=== PATIENT | male | born 1955 | race Caucasian/White ===

== ENCOUNTER 2016-09-13 16:16 | Inpatient (IN) | payer MEDICAID ==
[~2016-09-13] VITALS: Ht 152.4 cm; Wt 85.0 kg
[2016-09-13 16:21] VITALS: Ht 152.4 cm; Wt 85.0 kg
[2016-09-13] MEDS ORDERED: SOD CHLORIDE 0.9% 1,000 ML IV STA (16:32)
[2016-09-13] MEDS ORDERED: AMLO5TAB4 PO (16:47)
[2016-09-13] MEDS ORDERED: TAMS0.4C2 PO (16:48)
[2016-09-13] MEDS ORDERED: ASPI-664 PO (16:48)
[2016-09-13] MEDS ORDERED: NITR-58 PO (16:48)
[2016-09-13] MEDS ORDERED: LISI40TA9 PO (16:49)
[2016-09-13 16:50] LABS: ADD SCAN DIFF NO
[2016-09-13 16:55] LABS: BASOPHILS % 0.4 % (0.0-2.0); EOSINOPHILS # 0.2 10^3/ul (0.0-0.5); EOSINOPHILS % 2.1 % (0.0-7.0); HEMATOCRIT 45.5 % (42.0-52.0); LYMPHOCYTES # 2.4 10^3/ul (0.8-2.9); LYMPHOCYTES % 29.7 % (15.0-51.0); MEAN CORPUSCULAR HEMOGLOBIN 31.6 pg (29.0-33.0); MEAN CORPUSCULAR HGB CONC 35.2 g/dl (32.0-37.0); MEAN CORPUSCULAR VOLUME 89.7 fl (82.0-101.0); MEAN PLATELET VOLUME 9.5 fl (7.4-10.4); MONOCYTE # 0.6 10^3/ul (0.3-0.9); MONOCYTES % 8.1 % (0.0-11.0); NEUTROPHIL # 4.7 10^3/ul (1.6-7.5); NEUTROPHILS % 59.2 % (39.0-77.0); PLATELET COUNT 250 10^3/UL (140-415); RED BLOOD COUNT 5.07 10^6/ul (4.70-6.10); RED CELL DISTRIBUTION WIDTH 12.6 % (11.5-14.5); WHITE BLOOD COUNT 7.9 10^3/ul (4.8-10.8)
[2016-09-13 17:05] LABS: CHLORIDE 101 mmol/L (97-110); POTASSIUM 3.4 mmol/L (3.5-5.1); SODIUM 136 mmol/L (135-144)
[2016-09-13 17:08] LABS: ANION GAP 18 (8-16); BLOOD UREA NITROGEN 19 mg/dl (7-20); CALCIUM 9.5 mg/dl (8.4-10.2); CARBON DIOXIDE 20 mmol/L (21-31); CREATININE 0.75 mg/dl (0.61-1.24); GLUCOSE 130 mg/dl (70-220)
[2016-09-13 17:13] LABS: INR 0.95; PROTIME 12.7 Sec (12.2-14.2)
[2016-09-13 17:14] LABS: PARTIAL THROMBOPLASTIN TIME 31.3 Sec (25.0-35.0)
--- NOTE | 2016-09-13 17:23 | RADRPT ---
PROCEDURE: Chest x-ray CLINICAL INDICATION: Possible stroke TECHNIQUE: Chest single view COMPARISON: None FINDINGS: The heart is normal in size. The pulmonary vessels are normal in caliber. The lungs are clear. Th e costophrenic angles are sharp. The visualized bony thorax is unremarkable. IMPRESSION: No acute cardiopulmonary disease. RPTAT: HH .Cristino Robert MD, Date Time Electronically viewed and signed by .Cristino Robert MD, MD on 09/13/2016 17:22 .W/
[2016-09-13 17:30] LABS: ADD UMIC NO; URINE BILIRUBIN (Dip) NEGATIVE (NEGATIVE); URINE BLOOD (Dip) NEGATIVE (NEGATIVE); URINE COLOR LT. YELLOW (YELLOW); URINE GLUCOSE (Dip) NEGATIVE (NEGATIVE); URINE KETONES (Dip) NEGATIVE (NEGATIVE); URINE LEUKOCYTE ESTERASE (Dip) NEGATIVE (NEGATIVE); URINE NITRITE (Dip) NEGATIVE (NEGATIVE); URINE TOTAL PROTEIN (Dip) NEGATIVE (NEGATIVE); URINE UROBILINOGEN (Dip) 0.2 E.U./dL (0.1-1.0)
[2016-09-13 17:44] LABS: TROPONIN-I < 0.012 ng/ml (0.00-0.12)
[2016-09-13] MEDS ORDERED: POTASSIUM CHLORIDE (SR) 20 MEQ TAB PO STA (17:49)
[2016-09-13 18:29] LABS: BARBITURATES NEGATIVE (NEGATIVE)
[2016-09-13 18:30] LABS: BENZODIAZEPINES NEGATIVE (NEGATIVE); CANNABINOIDS NEGATIVE (NEGATIVE); COCAINE NEGATIVE (NEGATIVE); OPIATES NEGATIVE (NEGATIVE)
[2016-09-13] MEDS ORDERED: IOHEXOL 100 ML ONE (19:13)
[2016-09-13] MEDS ORDERED: IOHEXOL 350MG/ML 50 ML BTL ONE (19:13)
[2016-09-13] MEDS ORDERED: SOD CHLORIDE 0.9% 100 ML ONE (19:13)
[2016-09-13] MEDS ORDERED: LABETALOL HCL 20MG INJ IV ONE (19:30)
--- NOTE | 2016-09-13 19:44 | RADRPT ---
PROCEDURE: CT Head without contrast. CLINICAL INDICATION: Neurologic deficit TECHNIQUE: The study was performed utilizing a GE 64-slice multidetector CT scanner. Direct spiral axial CT images of the brain were obtained from the vertex to the skull base without contrast. Cor onal and sagittal reformat images are provided. The CTDI vol is 43.68 mGy and the DLP is 720.23 mGy -cm. The images were reviewed on a PACS workstation. COMPARISON: No prior studies are available for comparison. FINDINGS: The ventricles and cortical sulci are within normal limits. The ibrahim-white matter differentiation i s maintained. No intra or extra-axial fluid collection or mass effect or shift in the midline struc tures is seen. The visualized paranasal sinuses, mastoid air cells, orbits, and calvarium are unrem arkable. IMPRESSION: No acute intracranial pathology. RPTAT: HPNM Physician Tello Date Time Electronically viewed and signed by Physician Tello on 09/13/2016 19:44 /
--- NOTE | 2016-09-13 19:51 | RADRPT ---
PROCEDURE: CTA Chest. CLINICAL INDICATION: Chest pain and shortness of breath TECHNIQUE: The study was performed utilizing a GE 64-slice multidetector CT scanner. Multiple axia l sections were obtained from the thoracic inlet to the upper abdomen with the use of 125 cc of Omni paque 350 nonionic intravenous contrast material. Coronal and sagittal reformations were obtained. 3 -D reformatted images were performed. The images were reviewed on a PACS workstation. The CTDI vol is 45.34 mGy and the DLP is 741.92 mGy-cm. COMPARISON: No prior studies are available for comparison. FINDINGS: No filling defect in the pulmonary arterial system is seen. The main and central pulmonary arteries are normal in course and caliber. The aorta is without aneurysmal dilatation or dissection.The shola gs and pleural spaces are clear. The heart is mildly enlarged. No pericardial effusion is seen. No abnormally enlarged lymph nodes in the mediastinum, hilum, or axilla are seen. No suspicious osteob lastic for osteolytic lesions are seen. A duodenal diverticulum is seen. The visualized portions of the upper abdomen is grossly unremarkable. IMPRESSION: 1. No CT evidence for pulmonary embolus. 2. No CT evidence of an aortic dissection. 3. No acute pathology in the chest. RPTAT: HPNM Physician Tello Date Time Electronically viewed and signed by Physician Tello on 09/13/2016 19:51 /
[2016-09-13] MEDS ORDERED: ACETAMINOPHEN 325 MG TAB PO PRN ×2 (20:00→23:30)
[2016-09-13] MEDS ORDERED: ONDANSETRON 4 MG INJ IV PRN (20:00)
--- NOTE | 2016-09-13 20:16 | ERA ---
ER Documentation Chief Complaint Date/Time DATE: 09/13/16 TIME: 20:14 Chief Complaint left side numbness, after taking norvasc 5 mg HPI Patient is a 60-year-old male with hypertension who presents with numbness. He said that this morning he did not feel well. He had bilateral leg numbness. He went to his clinic today but did not tell the doctor what symptoms he was having. On the way home he said that he started to feel even worse and now is having chest pain and bilateral arm numbness. His right hand was shaking. He felt short of breath. He had difficulty with speaking. Upon review of old medical records this the patient's first visit to the emergency department. He says that his primary doctor is Dr. Ford. ROS All systems reviewed and are negative except as per history of present illness. Medications Home Meds Reported Medications Lisinopril* (Lisinopril*) 40 Mg Tablet, 40 MG PO DAILY, #30 TAB 09/13/16 Aspirin* (Aspirin* EC) 81 Mg Tablet.dr, 81 MG PO DAILY, TAB 09/13/16 Tamsulosin Hcl* (Tamsulosin Hcl*) 0.4 Mg Cap.er.24h, 0.4 MG PO TID, CAP 09/13/16 Nitrofurantoin Monohyd Macrocr* (Macrobid*) 100 Mg Capsr, 100 MG PO Q12H, CAP 09/13/16 Amlodipine Besylate* (Norvasc*) 5 Mg Tablet, 5 MG PO DAILY, TAB 09/13/16 Allergies Allergies: Coded Allergies: No Known Allergy (Unverified , 09/13/16) PMhx/Soc History of Surgery: No Anesthesia Reaction: No Hx Neurological Disorder: No Hx Respiratory Disorders: No Hx Cardiac Disorders: Yes (htn) Hx Psychiatric Problems: No Hx Miscellaneous Medical Probl: No Hx Alcohol Use: No Hx Substance Use: No Hx Tobacco Use: No Smoking Status: Never smoker FmHx Family History: No coronary disease Physical Exam Vitals Vital Signs Date Time Temp Pulse Resp B/P Pulse Ox O2 Delivery O2 Flow Rate FiO2 09/13/16 18:18 73 16 178/102 98 Room Air 09/13/16 16:55 Nasal Cannula 2 09/13/16 16:21 97.5 101 24 210/100 99 Physical Exam Const: Moderate distress Head: Atraumatic Eyes: Normal Conjunctiva ENT: Normal External Ears, Nose and Mouth. Neck: Full range of motion..~ No meningismus. Resp: Clear to auscultation bilaterally Cardio: Regular rate and rhythm, no murmurs Abd: Soft, non tender, non distended. Normal bowel sounds Skin: No petechiae or rashes Back: No midline or flank tenderness Ext: No cyanosis, or edema Neur: Awake and alert, cranial nerves II through XII are intact, no slurred speech, strength is 5 out of 5 in all 4 extremities Psych: Normal Mood and Affect Result Diagram: 09/13/16 1640 09/13/16 1640 Results 24 hrs Laboratory Tests Test 09/13/16 16:40 09/13/16 16:52 09/13/16 17:02 White Blood Count 7.910^3/ul Red Blood Count 5.0710^6/ul Hemoglobin 16.0g/dl Hematocrit 45.5% Mean Corpuscular Volume 89.7fl Mean Corpuscular Hemoglobin 31.6pg Mean Corpuscular Hemoglobin Concent 35.2g/dl Red Cell Distribution Width 12.6% Platelet Count 79436^3/UL Mean Platelet Volume 9.5fl Neutrophils % 59.2% Lymphocytes % 29.7% Monocytes % 8.1% Eosinophils % 2.1% Basophils % 0.4% Nucleated Red Blood Cells % 0.0/100WBC Neutrophils # 4.710^3/ul Lymphocytes # 2.410^3/ul Monocytes # 0.610^3/ul Eosinophils # 0.210^3/ul Basophils # 0.010^3/ul Nucleated Red Blood Cells # 0.010^3/ul Prothrombin Time 12.7Sec Prothrombin Time Ratio 1.0 INR International Normalized Ratio 0.95 Activated Partial Thromboplast Time 31.3Sec Sodium Level 136mmol/L Potassium Level 3.4mmol/L Chloride Level 101mmol/L Carbon Dioxide Level 20mmol/L Anion Gap 18 Blood Urea Nitrogen 19mg/dl Creatinine 0.75mg/dl Glucose Level 130mg/dl Hemoglobin A1c 5.6% Calcium Level 9.5mg/dl Troponin I < 0.012ng/ml Urine Color LT. YELLOW Urine Clarity CLEAR Urine pH 6.0 Urine Specific [place] <=1.005 Urine Ketones NEGATIVE Urine Nitrite NEGATIVE Urine Bilirubin NEGATIVE Urine Urobilinogen 0.2 E.U./dL Urine Leukocyte Esterase NEGATIVE Urine Hemoglobin NEGATIVE Urine Glucose NEGATIVE% Urine Total Protein NEGATIVE Urine Opiates Screen NEGATIVE Urine Barbiturates NEGATIVE Urine Amphetamines Screen NEGATIVE Urine Benzodiazepines Screen NEGATIVE Urine Cocaine Screen NEGATIVE Urine Cannabinoids NEGATIVE Bedside Glucose 143mg/dL Current Medications Medications (Trade) Dose Ordered Sig/Jesusita Route PRN Reason Start Time Stop Time Status Last Admin Dose Admin Sodium Chloride (NS) 1,000 ml @ 1,000 mls/hr Q1H STAT IV 09/13/16 16:32 09/13/16 17:31 DC 09/13/16 16:53 Potassium Chloride (Klor-Con 20) 40 meq ONCE STAT PO 09/13/16 17:49 09/13/16 17:51 DC 09/13/16 18:22 IV Flush 10 ml 10 ml STK-MED ONCE .ROUTE 09/13/16 19:13 09/13/16 19:14 DC 09/13/16 19:37 Sodium Chloride 100 ml @ ud STK-MED ONCE .ROUTE 09/13/16 19:13 09/13/16 19:14 DC 09/13/16 19:37 Iohexol (Omnipaque) 100 ml @ ud STK-MED ONCE .ROUTE 09/13/16 19:13 09/13/16 19:14 DC 09/13/16 19:37 Iohexol (Omnipaque 350mg/ ml) 50 ml STK-MED ONCE .ROUTE 09/13/16 19:13 09/13/16 19:14 DC 09/13/16 19:37 Labetalol HCl (Labetalol) 20 mg ONCE ONCE IV 09/13/16 19:30 09/13/16 19:31 DC 09/13/16 19:58 Ondansetron HCl (Zofran Inj) 4 mg ER BRIDGE PRN IV NAUSEA AND/OR VOMITING 09/13/16 20:00 09/14/16 19:59 Acetaminophen (Tylenol Tab) 650 mg ER BRIDGE PRN PO MILD PAIN/FEVER 09/13/16 20:00 09/14/16 19:59 Procedures/MDM EKG read by me: Rate/Rhythm: Sinus arrhythmia at a rate of 84 Intervals: Normal Impression: Sinus arrhythmia with PVCs CT brain normal per radiology. CT of the chest is negative per radiology without PE or aortic dissection. Chest x-ray shows no pneumonia or pneumothorax per radiology. Patient is a 60-year-old male who presents with numbness and chest pain. I was concerned about possible stroke as well as aortic dissection. I am also concerned about possible acute coronary syndrome. The patient had a full workup including laboratory studies, EKG, CT scan of the brain, and CT scan of the chest. The patient was given aspirin. The patient will be admitted to the care of Dr. Arceo from the panel team for a telemetry bed. He also has significantly elevated blood pressure and was given labetalol IV to bring in the blood pressure for hypertensive emergency. The patient also has hypokalemia with a potassium of 3.4 and was given potassium by mouth. The patient is not a TPA candidate as his symptoms started earlier this morning and he is outside the window for IV TPA or mechanical retrieval. He had a bedside swallow evaluation and NIH stroke scale performed. Critical Care: Time: 35 minutes excluding all billable procedures. Treatments/Evaluations: Close monitoring and treatment of unstable vital signs, cardiorespiratory, and neurologic status, while maintaining tight balance of fluid, respiratory, and cardiac interventions. Departure Diagnosis: Primary Impression: Hypertensive emergency Additional Impressions: Numbness Chest pain Qualified Code: R07.9 - Chest pain, unspecified type Stroke Qualified Code: I63.9 - Cerebrovascular accident (CVA), unspecified mechanism Hypokalemia Condition: SOHAIL Ramirez MD Sep 13, 2016 20:16
[2016-09-13 22:40] VITALS: PULSE 61
[2016-09-13] MEDS ORDERED: morphine 2 MG INJ IV PRN (23:30)
[2016-09-13] MEDS ORDERED: NITROGLYCERIN (SL) 0.4 MG TAB SL PRN (23:30)
[2016-09-13 23:37] VITALS: BP 134/73; PULSE 59; RESP 18
[2016-09-14] VITALS (9 sets, daily range): BP systolic 126–157; BP diastolic 59–100; PULSE 50–66; RESP 14–20
--- NOTE | 2016-09-14 05:27 | HP ---
DATE OF ADMISSION: 09/13/2016 TIME SEEN: 2300 hours. CHIEF COMPLAINT: Upper extremity numbness, chest pain and shortness of breath. HISTORY OF PRESENT ILLNESS: The patient is a 60-year-old male with a history of hypertension and BPH who presented to the emergency department with the above stated chief complaint. He said he starte d noticing lower extremity numbness this morning and was actually seen in the clinic but did not re port his symptoms at that time. His symptoms progressed and he started developing upper extremity a nd bilateral hand numbness as well as chest pain and shortness of breath and as such, he decided to come in for evaluation. He also reported difficulty with speech and finding some words. His chest pain is somehow left-sided with no radiation to his arm or jaw. No nausea, vomiting, diaphoresis; h owever, he did report shortness of breath. When he presented to the ER, his blood pressure was 210/100, heart rate 101, respiratory rate 24, te mperature 97.5, oxygen saturation 99% on room air. Laboratory value shows a potassium of 3.4, bicar bonate 20, otherwise CBC and BMP are within normal limits. A brain CT was done without contrast which showed no acute intracranial pathology. Chest x-ray show s clear lungs. CT pulmonary angiogram showed no evidence of PE or aortic dissection and there was n o acute pathology in the chest. The heart was noted to be mildly enlarged. The patient was given p otassium IV fluid and 20 mg of IV labetalol while he was in the ER. Of note, the patient's EKG show s sinus arrhythmia at a rate of 84 with PVCs. It is not documented on the system; however, the ER mena castellanos's notes did say that the patient received aspirin. REVIEW OF SYSTEMS: A 12-point review of systems performed is negative except as mentioned in HPI. PAST MEDICAL HISTORY: As per HPI. SOCIAL HISTORY: Denied a history of tobacco, alcohol or illicit drug use. ALLERGIES: NO KNOWN DRUG ALLERGIES. HOME MEDICATIONS 1. Norvasc. 2. Lisinopril. 3. Aspirin. 4. Tamsulosin. PHYSICAL EXAMINATION: VITAL SIGNS: Blood pressure 134/73, heart rate 59, respiratory rate 18, temperature 98, oxygen satu ration 100% on room air. GENERAL: No mild distress. He is currently lying in bed. HEENT: No obvious head deformity. Pupils are reactive to light. Extraocular muscles intact. CARDIOVASCULAR: Regular rate and rhythm. No extra sounds. LUNGS: Clear. ABDOMEN: Soft, nontender, nondistended. Positive bowel sounds. EXTREMITIES: No edema. NEUROLOGIC: No focal deficits. He has 5/5 strength in both upper and lower extremities. There see ms to be minimal decreased sensation on his hands bilaterally. LABORATORY DATA: Pertinent positives results as mentioned in the HPI. IMAGING: Chest x-ray, CT pulmonary angiogram and a brain CT with results as mentioned in the HPI. IMPRESSION: 1. Bilateral upper and lower extremity numbness. 2. Chest pain, need to rule out acute coronary syndrome. 3. Hypertensive urgency. 4. Shortness of breath. 5. History of benign prostatic hypertrophy. 6. Mild hypokalemia. 7. Mild anion gap metabolic acidosis. PLAN: Continue telemetry monitoring. He will be placed on an aspirin. We will continue his JOHN in hibitor and Norvasc and we will consider adding a beta inderjit if his blood pressure is not controll ed and if his heart rate allows. Currently heart rate is 59 after given labetalol in the ER. He belkis l receive as needed nitroglycerin and morphine for chest pain. He will receive breathing treatments as needed. His symptom could be the result of a severely elevated blood pressure, but we will rule out acute coronary syndrome. His first troponin is negative. We will send 2 more additional tropo nins. We will obtain a 2D echo. The patient does not have any focal weakness and numbness, but we will obtain a carotid Doppler ultrasound and we will consider MRI of the brain. I will add a statin and for DVT prophylaxis, he will be placed on subcutaneous heparin. We will place a cardiology con sult and the patient will be evaluated by the physical therapists before discharge. We will correct electrolytes as needed Further workup and management per clinical course. Dictated By: NISSA VANESSA/HARMONY Conf#: [id number] DID#: [id number]
[2016-09-14 08:13] LABS: ADD SCAN DIFF NO; BASOPHILS % 0.5 % (0.0-2.0); EOSINOPHILS # 0.2 10^3/ul (0.0-0.5); EOSINOPHILS % 2.6 % (0.0-7.0); HEMATOCRIT 42.7 % (42.0-52.0); HEMOGLOBIN 14.2 g/dl (14.0-18.0); LYMPHOCYTES # 1.8 10^3/ul (0.8-2.9); LYMPHOCYTES % 30.4 % (15.0-51.0); MEAN CORPUSCULAR HEMOGLOBIN 31.1 pg (29.0-33.0); MEAN CORPUSCULAR HGB CONC 33.3 g/dl (32.0-37.0); MEAN CORPUSCULAR VOLUME 93.6 fl (82.0-101.0); MEAN PLATELET VOLUME 9.8 fl (7.4-10.4); MONOCYTE # 0.6 10^3/ul (0.3-0.9); MONOCYTES % 10.1 % (0.0-11.0); NEUTROPHIL # 3.3 10^3/ul (1.6-7.5); NEUTROPHILS % 56.1 % (39.0-77.0); PLATELET COUNT 219 10^3/UL (140-415); RED BLOOD COUNT 4.56 10^6/ul (4.70-6.10); RED CELL DISTRIBUTION WIDTH 13.2 % (11.5-14.5); WHITE BLOOD COUNT 5.9 10^3/ul (4.8-10.8)
[2016-09-14 08:43] LABS: ALBUMIN 3.4 g/dl (3.3-4.9); CHLORIDE 109 mmol/L (97-110)
[2016-09-14 08:44] LABS: POTASSIUM 3.8 mmol/L (3.5-5.1); SODIUM 140 mmol/L (135-144)
[2016-09-14 08:46] LABS: ALBUMIN/GLOBULIN RATIO 1.09; ANION GAP 11 (8-16); ASPARTATE AMINO TRANSFERASE 17 IU/L (15-46); BILIRUBIN,INDIRECT 0.7 mg/dl (0-1.1); BILIRUBIN,TOTAL 0.7 mg/dl (0.2-1.3); CARBON DIOXIDE 24 mmol/L (21-31); CHOLESTEROL 113 mg/dl (100-200); CREATININE 0.84 mg/dl (0.61-1.24); TOTAL PROTEIN 6.5 g/dl (6.1-8.1)
[2016-09-14 08:47] LABS: ALANINE AMINOTRANSFERASE 27 IU/L (13-69); ALKALINE PHOSPHATASE 70 IU/L (42-121); BLOOD UREA NITROGEN 16 mg/dl (7-20); CALCIUM 8.7 mg/dl (8.4-10.2); GLUCOSE 96 mg/dl (70-220); MAGNESIUM 2.3 mg/dl (1.7-2.5); PHOSPHORUS 3.6 mg/dl (2.5-4.9); TRIGLYCERIDES 107 mg/dl (0-149)
[2016-09-14 08:48] LABS: CHOL/HDL RATIO 3.7 RATIO; HDL CHOLESTEROL 30 mg/dl (30-78)
[2016-09-14 09:26] LABS: TROPONIN-I < 0.012 ng/ml (0.00-0.12)
[2016-09-14] MEDS: LISINOPRIL 20 MG TAB PO SCH (09:33)
[2016-09-14] MEDS: ASPIRIN (EC) 81 MG TAB PO SCH (09:33)
[2016-09-14] MEDS: AMLODIPINE 5 MG TAB PO SCH (09:34)
[2016-09-14] MEDS: HEPARIN 5,000 UNIT/0.5 ML VIAL SC SCH ×2 (09:34→20:31)
--- NOTE | 2016-09-14 10:05 | PN ---
Date/Time of Note Date/Time of Note DATE: 09/14/16 TIME: 10:03 Assessment/Plan VTE Prophylaxis VTE Prophylaxis Intervention: LMWH Lines/Catheters IV Catheter Type (from [facility]): Saline Lock Assessment/Plan Problems: (1) BPH (benign prostatic hyperplasia) Status: Chronic Comment: Check postvoid residual. He is on alpha blockade already. Qualifiers: Prostatic enlargement morphology: unspecified morphology Lower urinary tract symptom presence: symptoms present Qualified Code: N40.1 - Benign prostatic hyperplasia with lower urinary tract symptoms, unspecified morphology (2) Stroke Status: Acute Comment: Physical therapy will evaluate the patient. There is been no evidence of progression while under careful observation. Qualifiers: CVA mechanism: unspecified Qualified Code: I63.9 - Cerebrovascular accident (CVA), unspecified mechanism (3) Hypertensive emergency Status: Acute Comment: His blood pressures come under control using appropriate blood pressure medication regimen Subjective 24 Hr Interval Summary Free Text/Dictation Charming vibrant gentleman in no distress. He does report that his left side still has some degree of weakness. Constitutional: no complaints Eyes: no complaints ENT: no complaints Respiratory: no complaints Cardiovascular: no complaints Gastrointestinal: no complaints Genitourinary: no complaints Neurologic: other (Modest left-sided weakness and incoordination) Exam/Review of Systems Vital Signs Vitals Vital Signs Date Time Temp Pulse Resp B/P Pulse Ox O2 Delivery O2 Flow Rate FiO2 09/14/16 08:10 55 09/14/16 04:48 97.6 14 128/78 95 Room Air 09/13/16 21:53 2.0 Exam Constitutional: alert, oriented Eyes: EOMI, PERRL, nl conjunctiva, nl lids, nl sclera Neck: non-tender, supple Respiratory: clear to auscultation, normal air movement Cardiovascular: nl pulses, regular rate and rhythm Gastrointestinal: nl liver, spleen, non-tender, soft Extremities: normal pulses Neurological: other (Left side has some decrease in fine motor function but he is ambulating.) Results Result Diagram: 09/14/16 0657 09/14/16 0657 Results 24 hrs Laboratory Tests Test 09/13/16 16:40 09/13/16 16:52 09/13/16 17:02 09/14/16 00:05 White Blood Count 7.9 Red Blood Count 5.07 Hemoglobin 16.0 Hematocrit 45.5 Mean Corpuscular Volume 89.7 Mean Corpuscular Hemoglobin 31.6 Mean Corpuscular Hemoglobin Concent 35.2 Red Cell Distribution Width 12.6 Platelet Count 250 Mean Platelet Volume 9.5 Neutrophils % 59.2 Lymphocytes % 29.7 Monocytes % 8.1 Eosinophils % 2.1 Basophils % 0.4 Nucleated Red Blood Cells % 0.0 Neutrophils # 4.7 Lymphocytes # 2.4 Monocytes # 0.6 Eosinophils # 0.2 Basophils # 0.0 Nucleated Red Blood Cells # 0.0 Prothrombin Time 12.7 Prothrombin Time Ratio 1.0 INR International Normalized Ratio 0.95 Activated Partial Thromboplast Time 31.3 Sodium Level 136 Potassium Level 3.4 L Chloride Level 101 Carbon Dioxide Level 20 L Anion Gap 18 H Blood Urea Nitrogen 19 Creatinine 0.75 Glucose Level 130 Hemoglobin A1c 5.6 Calcium Level 9.5 Troponin I < 0.012 < 0.012 Urine Color LT. YELLOW Urine Clarity CLEAR Urine pH 6.0 Urine Specific [place] <=1.005 L Urine Ketones NEGATIVE Urine Nitrite NEGATIVE Urine Bilirubin NEGATIVE Urine Urobilinogen 0.2 E.U./dL Urine Leukocyte Esterase NEGATIVE Urine Hemoglobin NEGATIVE Urine Glucose NEGATIVE Urine Total Protein NEGATIVE Urine Opiates Screen NEGATIVE Urine Barbiturates NEGATIVE Urine Amphetamines Screen NEGATIVE Urine Benzodiazepines Screen NEGATIVE Urine Cocaine Screen NEGATIVE Urine Cannabinoids NEGATIVE Bedside Glucose 143 Test 09/14/16 06:57 White Blood Count 5.9 # Red Blood Count 4.56 L Hemoglobin 14.2 Hematocrit 42.7 Mean Corpuscular Volume 93.6 Mean Corpuscular Hemoglobin 31.1 Mean Corpuscular Hemoglobin Concent 33.3 Red Cell Distribution Width 13.2 Platelet Count 219 Mean Platelet Volume 9.8 Neutrophils % 56.1 Lymphocytes % 30.4 Monocytes % 10.1 Eosinophils % 2.6 Basophils % 0.5 Nucleated Red Blood Cells % 0.0 Neutrophils # 3.3 Lymphocytes # 1.8 Monocytes # 0.6 Eosinophils # 0.2 Basophils # 0.0 Nucleated Red Blood Cells # 0.0 Sodium Level 140 Potassium Level 3.8 Chloride Level 109 Carbon Dioxide Level 24 Anion Gap 11 # Blood Urea Nitrogen 16 Creatinine 0.84 Glucose Level 96 Calcium Level 8.7 Phosphorus Level 3.6 Magnesium Level 2.3 Total Bilirubin 0.7 Direct Bilirubin 0.00 Indirect Bilirubin 0.7 Aspartate Amino Transf (AST/SGOT) 17 Alanine Aminotransferase (ALT/SGPT) 27 Alkaline Phosphatase 70 Troponin I < 0.012 Total Protein 6.5 Albumin 3.4 Globulin 3.10 Albumin/Globulin Ratio 1.09 Triglycerides Level 107 Cholesterol Level 113 LDL Cholesterol, Calculated 62 HDL Cholesterol 30 Cholesterol/HDL Ratio 3.7 Thyroid Stimulating Hormone (TSH) 3.070 Medications Medications Current Medications Amlodipine Besylate (Norvasc) 5 mg DAILY PO Last administered on 09/14/16 09: 34; Admin Dose 5 MG; Start 09/14/16 at 09:00 Aspirin (Halfprin) 81 mg DAILY PO Last administered on 09/14/16 09:33; Admin Dose 81 MG; Start 09/14/16 at 09:00 Lisinopril (Zestril) 40 mg DAILY PO Last administered on 09/14/16 09:33; Admin Dose 40 MG; Start 09/14/16 at 09:00 Tamsulosin HCl (Flomax) 0.4 mg HS PO ; Start 09/14/16 at 21:00 Atorvastatin Calcium (Lipitor) 20 mg HS PO ; Start 09/14/16 at 21:00 Nitroglycerin (Nitroglycerin (Sl Tab) 0.4 Mg) 1 tab Q5M PRN SL ANGINA; Start at 23:30 Morphine Sulfate (morphine) 2 mg Q4H PRN IV PAIN; Start 09/13/16 at 23:30 Acetaminophen (Tylenol Tab) 650 mg Q6H PRN PO PAIN AND OR ELEVATED TEMP; Start 09/13/16 at 23:30 Heparin Sodium (Porcine) (Heparin (5000 Units/0.5 ml)) 5,000 unit BID SC Last administered on 09/14/16 09:34; Admin Dose 5,000 UNIT; Start 09/14/16 at 09:00 LETITIA GILL MD Sep 14, 2016 10:04
--- NOTE | 2016-09-14 16:26 | RADRPT ---
PROCEDURE: Carotid ultrasound CLINICAL INDICATION: Transient ischemic attack, carotid bruits TECHNIQUE: Corea scale, color doppler, spectral doppler ultrasound of the bilateral carotid and eren tebral arteries. This study indirectly references the measurement of the distal ICA diameter as the denominator for s tenosis measurement. Validated velocity measurements with angiographic measurements, velocity criter ia are extrapolated from diameter data as defined by: *Cartoid artery stenosis: corea-scale and Doppl er US diagnosis. Society of Radiologists in Ultrasound Consensus Conference. Radiology 2003; 229: 34 0-346. SRU Consensus Conference Criteria for the Diagnosis of Carotid Artery Stenosis* Degree of Stenosis, % ICA PSV, cm/sec Plaque Estimate, % ICA/CCA PSV Ratio Normal <125 None <2.0 <50 <125 <50 <2.0 50 69 125-230 >50 2.0-4.0 >70 but less than near occlusion >230 >50 <4.0 Near occlusion High, low, or undetectable Visible Variable Total occlusion Undetectable Visible, no detectable lumen Not applicable COMPARISON: No prior studies are available for comparison. FINDINGS: Location Right CCA81 cm/sec Prox ICA 42 cm/sec Mid ICA41 cm/sec Dist ICA59 cm/sec KDU113 cm/sec ICA/CCA0.7 Left OAW958 cm/sec Prox ICA 61 cm/sec Mid ICA70 cm/sec Dist ICA66 cm/sec CTI330 cm/sec ICA/CCA0.6 Plaque burden: No significant plaque is seen. Antegrade flow is seen within the vertebral arteries bilaterally. IMPRESSION: No evidence of a hemodynamically significant carotid stenosis. RPTAT: AADD .Davi Jj MD, Date Time Electronically viewed and signed by .Davi Jj MD, MD on 09/14/2016 16:25 .B/
[2016-09-14] MEDS ORDERED: ATORVASTATIN 20 MG TAB PO SCH (21:00)
[2016-09-14] MEDS ORDERED: TAMSULOSIN (SR) 0.4 MG CAP PO SCH (21:00)
[2016-09-15] VITALS (7 sets, daily range): BP systolic 134–154; BP diastolic 78–80; PULSE 45–70; RESP 16
[2016-09-15] MEDS: AMLODIPINE 5 MG TAB PO SCH (08:33)
[2016-09-15] MEDS: ASPIRIN (EC) 81 MG TAB PO SCH (08:33)
[2016-09-15] MEDS: LISINOPRIL 20 MG TAB PO SCH (08:38)
[2016-09-15] MEDS: HEPARIN 5,000 UNIT/0.5 ML VIAL SC SCH (08:42)
--- NOTE | 2016-09-15 09:02 | PDOCDIS ---
Discharge Instructions DIAGNOSIS Discharge Diagnosis: TIA; hypertension; BPH CONDITION Patient Condition: Fair HOME CARE INSTRUCTIONS: Diet Instructions: Regular ACTIVITY: Activity Restrictions: Slowly Increase Activity FOLLOW UP/APPOINTMENTS Appointments With primary care physician at clinic in the next week LETITIA GILL MD Sep 15, 2016 09:02
[2016-09-15] MEDS ORDERED: ATOR20TA65 PO (09:03)
--- NOTE | 2016-09-15 09:08 | DS ---
Date/Time of Note Date/Time of Note DATE: 09/15/16 TIME: 09:03 Discharge Summary Admission/Discharge Info Admit Date/Time Sep 13, 2016 at 19:54 Discharge Date/Time 09/15/2016 Final Diagnosis TIA; hypertension; hyperlipidemia; BPH Patient Condition: Good Procedures Carotid duplex scanPlaque burden: No significant plaque is seen. Antegrade flow is seen within the vertebral arteries bilaterally. IMPRESSION: No evidence of a hemodynamically significant carotid stenosis. CT angiogram chestIMPRESSION: 1. No CT evidence for pulmonary embolus. 2. No CT evidence of an aortic dissection. 3. No acute pathology in the chest. CT scan brainIMPRESSION: No acute intracranial pathology. Hx of Present Illness HISTORY OF PRESENT ILLNESS: The patient is a 60-year-old male with a history of hypertension and BPH who presented to the emergency department with the above stated chief complaint. He said he started noticing lower extremity numbness this morning and was actually seen in the clinic but did not report his symptoms at that time. His symptoms progressed and he started developing upper extremity and bilateral hand numbness as well as chest pain and shortness of breath and as such, he decided to come in for evaluation. He also reported difficulty with speech and finding some words. His chest pain is somehow left- sided with no radiation to his arm or jaw. No nausea, vomiting, diaphoresis; however, he did report shortness of breath. When he presented to the ER, his blood pressure was 210/100, heart rate 101, respiratory rate 24, temperature 97.5, oxygen saturation 99% on room air. Laboratory value shows a potassium of 3.4, bicarbonate 20, otherwise CBC and BMP are within normal limits. A brain CT was done without contrast which showed no acute intracranial pathology. Chest x-ray shows clear lungs. CT pulmonary angiogram showed no evidence of PE or aortic dissection and there was no acute pathology in the chest. The heart was noted to be mildly enlarged. The patient was given potassium IV fluid and 20 mg of IV labetalol while he was in the ER. Of note, the patient's EKG shows sinus arrhythmia at a rate of 84 with PVCs. It is not documented on the system; however, the ER physician's notes did say that the patient received aspirin. Hospital Course Saira meehanman admitted to the hospital. He was observed there is no neurological sequela. Swallowing evaluation was perfectly normal. He has done well without any changes in pattern of behavior. As such she is now stable for discharge home. His blood pressure control has come under control nicely. He is being discharged in good condition as compared to the time of admission he has no known communicable diseases he is not a hazard to himself or others. He is competent for medical decision-making. His rehabilitation potential is good. Home Meds Active Scripts Atorvastatin Calcium (Atorvastatin Calcium) 20 Mg Tablet, 20 MG PO HS for 30 Days, TAB 3 Refills To lower cholesterol Prov:LETITIA GILL MD 09/15/16 Reported Medications Lisinopril* (Lisinopril*) 40 Mg Tablet, 40 MG PO DAILY, #30 TAB 09/13/16 Aspirin* (Aspirin* EC) 81 Mg Tablet.dr, 81 MG PO DAILY, TAB 09/13/16 Tamsulosin Hcl* (Tamsulosin Hcl*) 0.4 Mg Cap.er.24h, 0.4 MG PO TID, CAP 09/13/16 Nitrofurantoin Monohyd Macrocr* (Macrobid*) 100 Mg Capsr, 100 MG PO Q12H, CAP 09/13/16 Amlodipine Besylate* (Norvasc*) 5 Mg Tablet, 5 MG PO DAILY, TAB 09/13/16 Follow-up Plan Primary care physician in clinic tomorrow LETITIA GILL MD Sep 15, 2016 09:08
== END 2016-09-15 14:39 | disposition home or self-care (01) | DRG 69 ==
LOC: E/R 16:16 → MS4 19:54
PROVIDERS: ADMIT Internal Medicine; ATTEND Internal Medicine
DX: G45.9 Transient cerebral ischemic attack, unspecified (principal); E87.2 Acidosis; I16.1 Hypertensive emergency; E87.6 Hypokalemia; N40.0 Benign prostatic hyperplasia without lower urinary tract symptoms; E78.5 Hyperlipidemia, unspecified; I10 Essential (primary) hypertension; Z79.82 Long term (current) use of aspirin
CPT/HCPCS: 36415; 70450; 71010; 71275; 80048; 80053; 80061; 80307; 81003; 82962; 83036; 83735; 84100; 84443; 84484; 85025; 85610; 85730; 86592; 86803; 87340; 92610; 93005; 93880; 96374; J1644; J7030; Q9967